=== PATIENT | male | born 1995 | race African-American/Black ===

== ENCOUNTER 2020-09-25 23:24 | Emergency (ER) | payer OTHER ==
[2020-09-25 23:52] LABS: HEMOGLOBIN 14.9 gm/dl (14.0-17.5); RED BLOOD COUNT 4.88 M/UL (4.20-5.50); WHITE BLOOD COUNT 5.4 K/UL (4.5-11.0)
[2020-09-26 00:04] LABS: BUN/CREATININE RATIO 10 (0-10)
== END 2020-09-26 02:30 | disposition home or self-care (01) ==
LOC: ER1 23:24
PROVIDERS: Family Medicine
DX: S00.81XA Abrasion of other part of head, initial encounter (principal); V49.50XA Passenger injured in collision with unspecified motor vehicles in traffic accident, initial encounter; Y92.410 Unspecified street and highway as the place of occurrence of the external cause
CPT/HCPCS: 70450; 71045; 80053; 83605; 85025; 85610; 85730; 86850; 86900; 86901; 90715; 99284; G0480